=== PATIENT | male | born 1965 | race Caucasian/White ===

== ENCOUNTER 2020-08-25 22:15 | Emergency (ER) | payer BC ==
[2020-08-25] MEDS ORDERED: Metoclopramide 10 MG/2 ML SDV IVPUSH ONE (23:48)
[2020-08-25] MEDS ORDERED: Sodium Chloride 0.9% 2.5 ML Syringe FLUSH PRN (23:48)
[2020-08-25] MEDS ORDERED: Sodium Chloride 0.9% 10 ML Syringe FLUSH PRN (23:48)
[2020-08-25] MEDS ORDERED: Sodium Chloride 0.9% 1,000 ML IV ONE (23:48)
[2020-08-25] MEDS ORDERED: diphenhydrAMINE 50 MG/ML SDV IVPUSH ONE (23:48)
--- NOTE | 2020-08-25 23:49 | EDM.PDOC ---
ED HPI GENERAL MEDICAL PROBLEM - General Chief Complaint: Headache Stated Complaint: HEADACHE Time Seen by Provider: 08/25/20 22:47 Source of Information: Reports: Patient History Limitations: Reports: No Limitations - History of Present Illness INITIAL COMMENTS - FREE TEXT/NARRATIVE: 55-year-old male with history of CVA, HTN, diabetes presents with headache. Headache started at 2030 this evening, localized to the frontal lobe and radiates to the occiput, described as stabbing, rated 6/10 and worsened to a 10/10, constant, associated with photosensitivity. He denies fever, chills, nausea, vomiting, blurry vision, neck pain or stiffness, focal numbness or weakness. ROS: A 10-point review of systems, other than pertinent positives and negatives as stated per HPI, is otherwise negative Past medical history: No additional pertinent history Past Surgical history: No additional pertinent history Social history: No additional pertinent history Family history: No additional pertinent history PHYSICAL EXAM General: AOx4, GCS = 15, mild distress HEENT: dry mucous membrane Neck: supple, no meningismus, no Kernig or Brudzinski Cardiac: S1S2 RRR Respiratory: CTAB, no crackles or rales, no wheezing Abdomen: Soft, nontender, no rebound or guarding, nondistended, no pulsatile mass. Back: nontender Musculoskeletal: NVI distally, no deformity Neuro: No focal deficits, CN 2 - 12 WNL. R head Pain Score (Numeric/FACES): 10 - Related Data Allergies Allergy/AdvReac Type Severity Reaction Status Date / Time Penicillins Allergy Other Verified 08/25/20 22:32 Home Meds: Home Meds Aspirin [Aspirin EC] 81 mg PO DAILY 08/25/20 [History] Clopidogrel [Plavix] 75 mg PO DAILY 08/25/20 [History] Fish Oil/[place]-3 Fatty Acids [Fish Oil 1,000 MG] 1,000 mg PO BID 08/25/20 [History] Furosemide 40 mg PO DAILY 08/25/20 [History] Isosorbide Mononitrate 20 mg PO BID 08/25/20 [History] Spironolactone [Aldactone] 25 mg PO DAILY 08/25/20 [History] amLODIPine [Norvasc] 10 mg PO DAILY 08/25/20 [History] atorvaSTATin [Lipitor] 40 mg PO DAILY 08/25/20 [History] carvediloL [Carvedilol] 12.5 mg PO BID 08/25/20 [History] glipiZIDE [Glucotrol XL] 10 mg PO BID 08/25/20 [History] lisinopriL [Prinivil] 40 mg PO DAILY 08/25/20 [History] metFORMIN [Glucophage XR] 1,000 mg PO BID 08/25/20 [History] Past Medical History Cardiovascular History: Reports: Hypertension Other Cardiovascular History: 2 stents Other Musculoskeletal History: L shoulder arthoscopy, R finger sx Neurological History: Reports: CVA Endocrine/Metabolic History: Reports: Diabetes, Type II - Infectious Disease History Infectious Disease History: Reports: Chicken Pox, Mumps - Past Surgical History GI Surgical History: Reports: Colonoscopy Social & Family History - Family History Family Medical History: No Pertinent Family History - Caffeine Use Caffeine Use: Reports: None - Recreational Drug Use Recreational Drug Use: No ED ROS GENERAL - Review of Systems Review Of Systems: See Below (see dictation) - Physical Exam Exam: See Below (see dictation) Course - Vital Signs Last Recorded V/S: Last Vital Signs Temp 98.8 F 08/25/20 22:33 Pulse 78 08/25/20 22:33 Resp 18 08/25/20 22:33 BP 150/76 H 08/25/20 23:26 Pulse Ox 94 L 08/25/20 22:33 - Orders/Labs/Meds Orders: Active Orders 24 hr Category Date Time Status Sodium Chloride 0.9% [Saline Flush] Med 08/25/20 23:48 Active 10 ml FLUSH ASDIRECTED PRN Sodium Chloride 0.9% [Saline Flush] Med 08/25/20 23:48 Active 2.5 ml FLUSH ASDIRECTED PRN Saline Lock Insert [OM.PC] Stat Oth 08/25/20 23:48 Ordered Medication Orders Sodium Chloride (Saline Flush) 10 ml FLUSH ASDIRECTED PRN PRN Reason: Keep Vein Open Sodium Chloride (Saline Flush) 2.5 ml FLUSH ASDIRECTED PRN PRN Reason: Keep Vein Open Meds: Medications Generic Name Dose Route Start Last Admin Trade Name Freq PRN Reason Stop Dose Admin Sodium Chloride 10 ml 08/25/20 23:48 Saline Flush FLUSH ASDIRECTED PRN Keep Vein Open Sodium Chloride 2.5 ml 08/25/20 23:48 Saline Flush FLUSH ASDIRECTED PRN Keep Vein Open Discontinued Medications Generic Name Dose Route Start Last Admin Trade Name Freq PRN Reason Stop Dose Admin Diphenhydramine HCl 50 mg 08/25/20 23:48 08/26/20 00:00 Benadryl IVPUSH 08/25/20 23:49 50 mg ONETIME ONE Administration Sodium Chloride 1,000 mls @ 999 mls/hr 08/25/20 23:48 08/26/20 00:00 Normal Saline IV 08/26/20 00:48 999 mls/hr .Bolus ONE Administration Metoclopramide HCl 10 mg 08/25/20 23:48 08/26/20 00:00 Reglan IVPUSH 08/25/20 23:49 10 mg ONETIME ONE Administration - Re-Assessments/Exams Free Text/Narrative Re-Assessment/Exam: 08/25/20 23:47 Ordered IV fluids, Reglan, Benadryl 08/26/20 01:35 After IV medication in the ER, the patient improved and is currently stable for discharge. I performed a repeat exam and did not appreciate new abnormal findings. Patient exhibits normal vital signs and has a normal gait on road test. I advised the patient to return to the ER for reevaluation if symptoms worsened, including fever, worsening pain, or any other worrisome symptoms. I instructed the patient to follow up with their PCP within 2-3 days. MEDICAL DECISION MAKING: I reviewed the patients past medical records, lab and radiographic findings. I discussed the case with the patient. My differential diagnosis included: SAH, tension headache, cluster headache, migraine headache. Headache was acute in onset and has been less than 6 hours, CT head was negative for SAH or any intracranial process. Headache was resolved after IV medication. I suspect he is stable for outpatient follow-up with PCP. Departure - Departure Time of Disposition: 01:35 Disposition: Home, Self-Care 01 Condition: Good Clinical Impression: Headache - Discharge Information *PRESCRIPTION DRUG MONITORING PROGRAM REVIEWED*: Not Applicable *COPY OF PRESCRIPTION DRUG MONITORING REPORT IN PATIENT LUIZ: Not Applicable Instructions: General Headache Without Cause Referrals: PCP,Not In Area [Primary Care Provider] - Forms: ED Department Discharge Additional Instructions: The need for follow-up, as well as the timing and circumstances, are variable depending upon the specifics of your emergency department visit. If you don't have a primary care physician on staff, we will provide you with a referral. We always advise you to contact your personal physician following an emergency department visit to inform them of the circumstance of the visit and for follow-up with them and/or the need for any referrals to a consulting specialist. The emergency department will also refer you to a specialist when appropriate. This referral assures that you have the opportunity for follow-up care with a specialist. All of these measure are taken in an effort to provide you with optimal care, which includes your follow-up. Under all circumstances we always encourage you to contact your private physic luis miguel who remains a resource for coordinating your care. When calling for follow- up care, please make the office aware that this follow-up is from your recent emergency room visit. If for any reason you are refused follow-up, please contact the Emergency Department at and asked to speak to the emergency department charge nurse. If you do not have a primary care doctor, please follow up with the clinics below within 3-5 days. [facility] [address] [place] [id number] [facility] [address] [place] [address] Sepsis Event Note (ED) - Evaluation Sepsis Screening Result: No Definite Risk - Focused Exam Vital Signs: Vital Signs Temp Pulse Resp BP Pulse Ox 08/25/20 23:26 150/76 H 08/25/20 22:33 98.8 F 78 18 174/85 H 94 L - My Orders Last 24 Hours: My Active Orders 08/25/20 23:48 Sodium Chloride 0.9% [Saline Flush] 10 ml FLUSH ASDIRECTED PRN Sodium Chloride 0.9% [Saline Flush] 2.5 ml FLUSH ASDIRECTED PRN Saline Lock Insert [OM.PC] Stat - Assessment/Plan Last 24 Hours: My Active Orders 08/25/20 23:48 Sodium Chloride 0.9% [Saline Flush] 10 ml FLUSH ASDIRECTED PRN Sodium Chloride 0.9% [Saline Flush] 2.5 ml FLUSH ASDIRECTED PRN Saline Lock Insert [OM.PC] Stat
--- NOTE | 2020-08-26 00:16 | CT ---
Indication: Chronic headache with acute worsening Technique: Nonenhanced axial CT imaging through the head. Sagittal and coronal reconstructions are provided. Comparison: None Findings: There is no intracranial hemorrhage, edema, or mass effect. Focus of encephalomalacia is noted in the inferior left cerebellum, consistent with old infarct. The supratentorial brain is unremarkable. There is normal size of the ventricles. The basal cisterns are patent. The calvarium is intact. The mastoid air cells are aerated. Small mucous retention cysts noted in the maxillary sinuses. Slightly hyperdense focus in the right external auditory canal most likely represents cerumen. Impression: 1. No acute intracranial process. 2. Small old left inferior cerebellar infarct. Please note that all CT scans at this facility use dose modulation, iterative reconstruction, and/or weight-based dosing when appropriate to reduce radiation dose to as low as reasonably achievable. Dictated by Shonna Layton MD @ Aug 26 2020 12:14AM Signed by Dr. Shonna Layton @ Aug 26 2020 12:14AM
== END 2020-08-26 02:05 | disposition home or self-care (01) ==
LOC: MW.ED 22:15
DX: R51.9 Headache, unspecified (principal); I10 Essential (primary) hypertension; E11.9 Type 2 diabetes mellitus without complications; Z86.73 Personal history of transient ischemic attack (TIA), and cerebral infarction without residual deficits; Z88.0 Allergy status to penicillin; Z79.82 Long term (current) use of aspirin; Z79.02 Long term (current) use of antithrombotics/antiplatelets; Z79.899 Other long term (current) drug therapy
CPT/HCPCS: 70450; 96374; 96375; 99284; J1200; J2765; J7030